=== PATIENT | male | born 1990 | race African-American/Black ===

== ENCOUNTER 2019-01-23 12:26 | Emergency (ER) | payer MEDICAID ==
[~2019-01-23] VITALS: Ht 172.7 cm; Wt 77.7 kg
[2019-01-23 12:31] VITALS: BP 145/68; PULSE 66; RESP 20; Ht 172.7 cm; Wt 77.7 kg
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
[2019-01-23] MEDS ORDERED: BACL10TA PO (12:48)
[2019-01-23] MEDS ORDERED: ACET325T33 PO (12:48)
[2019-01-23] MEDS ORDERED: IBUP-1542 PO (12:48)
== END 2019-01-23 12:54 | disposition home or self-care (01) ==
LOC: FTE 12:26 → E/R 12:54
DX: R07.89 Other chest pain (principal)
CPT/HCPCS: 99283